=== PATIENT | female | born 1940 | race Caucasian/White ===

== ENCOUNTER 2022-08-11 08:06 | Emergency (ER) | payer MEDICARE, OTHER ==
[~2022-08-11] VITALS: Wt 46.4 kg
[~2022-08-11 08:06] MED LIST: MULTIVITAMINS1 EAC7 PO; NORCO 5-325 TA1 EACH PO; ULTRAM50 MG PO
[2022-08-11 10:11] VITALS: BP 135/70
--- NOTE | 2022-08-11 14:02 | EKG ---
[facility] [address] [facility] [place], [place] [address] Signed Sinus bradycardia Possible Left atrial enlargement Rightward axis Anteroseptal infarct , age undetermined Abnormal ECG No previous ECGs available Confirmed by MADHURI ALEMAN MD ([id number] on 08/11/2022 2:02:17 PM Electronically Signed By: MADHURI ALEMAN MD 08/11/22 1402 PATIENT NAME: KENDALSVETLANAAury SHERIDAN Electrocardiogram DATE OF : 42 PHYSICIAN: MADHURI ALEMAN MD REPORT #: [id number] REPORT IS CONFIDENTIAL AND NOT TO BE RELEASED WITHOUT AUTHORIZATION
== END 2022-08-11 10:32 | disposition short-term general hospital (02) ==
LOC: ED 08:06
DX: I63.232 Cerebral infarction due to unspecified occlusion or stenosis of left carotid arteries (principal)
CPT/HCPCS: 36415; 70450; 70496; 70498; 71045; 80053; 84484; 85025; 85610; 85730; 87502; 93005; 93010; J3101; Q3014; Q9967; U0003